=== PATIENT | female | born 1935 | race Caucasian/White ===

== ENCOUNTER 2021-01-23 10:18 | Observation (INO) | payer OTHER ==
[~2021-01-23] VITALS: Ht 142.2 cm; Wt 52.6 kg
[~2021-01-23 10:18] MED LIST: ALLOPURINOL; ATENOLOL; DIOVAN
[2021-01-23 10:44] VITALS: BP 155/48
[2021-01-23 10:49] LABS: HEMATOCRIT 35.7 % (37.0-47.0); HEMOGLOBIN 11.7 gm/dL (12.0-15.0); MCH 30.7 pg (26.0-34.0); MCHC 32.7 g/dL (28.0-37.0); MCV 94.1 fL (80.0-100.0); MPV 9.9 fl. (7.2-11.1); NUCLEATED RBCS 0 /100WBC; PLATELET COUNT* 246 thou/uL (150-400); WBC 8.9 thou/uL (4.0-11.0)
[2021-01-23] MEDS ORDERED: TOPROL XL25 MG PO (10:49)
[2021-01-23] MEDS ORDERED: ALLOPURINOL 10100 M1 PO (10:49)
[2021-01-23] MEDS ORDERED: ASA81BEC PO (10:49)
[2021-01-23] MEDS ORDERED: PLAVIX 75 MG TA75 MG PO (10:50)
[2021-01-23] MEDS ORDERED: TRIAMTERENE/HCT1 CA1 PO (10:50)
[2021-01-23 11:06] LABS: CREATININE 1.7 mg/dL (0.6-1.3); POTASSIUM 5.7 mmol/L (3.5-5.1)
[2021-01-23 11:07] LABS: CALCIUM 9.2 mg/dL (8.5-10.1)
[2021-01-23 11:08] LABS: ALBUMIN 3.6 g/dL (3.4-5.0); TOTAL BILIRUBIN 0.2 mg/dL (<0.1-1.0); TOTAL PROTEIN 7.8 g/dL (6.4-8.2)
[2021-01-23 11:13] LABS: ABSOLUTE BASOPHILS 0.1 thou/uL (0.0-0.2); ABSOLUTE EOSINOPHILS 0.3 thou/uL (0.0-0.7); ABSOLUTE LYMPHOCYTES 1.6 thou/uL (0.8-5.3); ABSOLUTE MONOCYTES 0.4 thou/uL (0.0-1.2); ABSOLUTE NEUTROPHILS 6.5 thou/uL (1.6-8.1); ATYPICAL LYMPHS 1 %; METAMYELOCYTES 2 %; PLATELET ESTIMATE ADEQUATE
[2021-01-23 12:01] LABS: URINE BILIRUBIN NEGATIVE (Negative); URINE BLOOD 3+ (Negative); URINE CLARITY CLEAR; URINE COLOR YELLOW; URINE GLUCOSE-RANDOM NEGATIVE (Negative); URINE KETONES NEGATIVE (Negative); URINE LEUKOCYTES 2+ (Negative); URINE NITRITE NEGATIVE (Negative); URINE PROTEIN TRACE (Negative); URINE UROBILINOGEN 0.2 E.U./dl (0.2-1.0)
[2021-01-23 12:07] LABS: BACTERIA 1-9 Few /HPF (None Seen); SQUAMOUS 0-3 Few /LPF (0-3); URINE WBC 6-15 Few /HPF (0-5)
[2021-01-23 12:08] LABS: CASTS None Seen /LPF (None Seen); CRYSTALS None Seen /LPF (None Seen); MUCUS 0-3 Light strn/LPF (None Seen)
[2021-01-23 13:17] VITALS: BP 154/70
[2021-01-23 14:45] VITALS: BP 132/49
--- NOTE | 2021-01-23 14:57 | EKG ---
[place] [address] ELECTROCARDIOGRAM REPORT Name: [facility]UE Room: [address]R.#: [id number] Admission: 01/23/21 Attend Phys: Guy Parikh Discharge: Date of : 35 Date of Service: 01/23/21 1052 Report #: [id number] THIS REPORT FOR: //name// [facility] ED Test Date: 2021-01-23 Test Time: 10:52:58 Pat Name: SUE AC Department: Room: [facility] Gender: F [employer] Installer: MOLLY : 1935 Requested By: Madi Kowalski Order Number: [id number] MD: Faraz Snider Measurements Intervals [place] Rate: 57 P: 42 NM: 169 QRS: 69 QRSD: 141 T: 11 QT: 484 QTc: 472 Interpretive Statements Sinus rhythm Right bundle branch block No previous ECG available for comparison Electronically Signed On 01-23-2021 14:57:19 CDT by Faraz Snider [email or web address] <ELECTRONICALLY SIGNED> By: Faraz Snider MD, [facility] 01/23/21 1457 1052 1052 Faraz Snider MD, [facility] /EPI
[2021-01-23 16:00] VITALS: BP 125/63
[2021-01-23 20:00] VITALS: BP 130/60
--- NOTE | 2021-01-24 04:10 | NUR ---
DAUGHTER AND VISITOR HERE AT BEGINNING OF SHIFT. DAUGHTER BROUGHT HER IN TANZANIAN FOOD; PT ATE MOST OF IT WHILE SITTING ON SIDE OF THE BED. PT ABLE TO ANSWER QUESTIONS APPROPRIATLEY AND REMEMBERS TO USE CALL LIGHT FOR ASSISTANCE TO WALK TO THE BATHROOM. PT VOIDS YELLOW URINE. PT HAS BLEEDING HEMORROIDS. FLUIDS INFUSING PER DR ORDER. VITALS WNL. FREQUENTLY USED ITEMS AND CALL LIGHT WITHIN REACH. SIDERAILS UPX2 AND BED ALARM ON. WILL CONTINUE TO MONITOR.
[2021-01-24 05:08] LABS: HEMATOCRIT 27.8 % (37.0-47.0); MCH 31.1 pg (26.0-34.0); MCHC 32.8 g/dL (28.0-37.0); MCV 94.7 fL (80.0-100.0); MPV 9.5 fl. (7.2-11.1); RBC 2.94 mil/uL (4.20-5.00); RDW-CV 16.7 % (10.5-14.5); WBC 6.4 thou/uL (4.0-11.0)
[2021-01-24 05:10] LABS: HEMOGLOBIN 9.1 gm/dL (12.0-15.0)
[2021-01-24 05:19] LABS: CALCIUM 8.2 mg/dL (8.5-10.1); CREATININE 1.4 mg/dL (0.6-1.3)
[2021-01-24 05:28] LABS: POTASSIUM 4.3 mmol/L (3.5-5.1)
[2021-01-24 08:00] VITALS: BP 129/50
[2021-01-24 08:14] VITALS: BP 129/50
--- NOTE | 2021-01-24 14:37 | NUR ---
Pt is A&O. Resides at home with friends. Independent, dtr assists with some ADLs and IADLs, family provide transportation. No DME. Family working on securing caregivers for Pt post dc. Anticipate dc tomorrow to home. CM will discuss HH with Pt. Continues IV fluids. Therapies ordered.
[2021-01-24 15:31] VITALS: BP 153/67
--- NOTE | 2021-01-24 19:02 | NUR ---
PATIENT RESTING IN RECLINER, FAMILY AT SIDE VISITING. IV TO LEFT FOREARM WITH NORMAL SALINE INFUSING AT 100ML/HR. C/O OF RIGHT EYE ITCHY, BURNING. WILL GET EYE OINTMENT STARTING TONIGHT. ALERT AND ORIENTED X4. NO COMPLAINTS OF PAIN. ALL QUESTIONS AND CONCERNS ADDRESSED.
[2021-01-24 20:30] VITALS: BP 180/62
[2021-01-25 03:58] LABS: HEMOGLOBIN 9.4 gm/dL (12.0-15.0); MCH 30.8 pg (26.0-34.0); MCHC 32.5 g/dL (28.0-37.0); MCV 94.9 fL (80.0-100.0); MPV 10.1 fl. (7.2-11.1); RBC 3.05 mil/uL (4.20-5.00); RDW-CV 16.8 % (10.5-14.5); WBC 6.3 thou/uL (4.0-11.0)
[2021-01-25 04:05] LABS: CALCIUM 7.6 mg/dL (8.5-10.1); CREATININE 1.1 mg/dL (0.6-1.3); POTASSIUM 4.1 mmol/L (3.5-5.1)
--- NOTE | 2021-01-25 06:42 | NUR ---
Oriented x 2-3 but is forgetful. 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 She seems like she's hard of hearing. She denies any discomfort. She is up in the room with stand by assist to the bathroom. New IV started in rt hand,20 gauge. She has slept well this shift.
[2021-01-25 08:00] VITALS: BP 134/63
[2021-01-25] MEDS ORDERED: ERYTHROMYCIN E3.5 G3 OPHTHALMIC (08:24)
[2021-01-25] MEDS ORDERED: CEFDINIR300 MG PO (08:24)
[2021-01-25 14:09] VITALS: BP 134/63
--- NOTE | 2021-01-25 15:24 | NUR ---
PT DISCHARGED HOME ACCOMPANIED BY HER SON IN LAW. PT HAS GOOD UNDERSTAnding of discharge instructions. PT SALINE LOCK WAS REMOVED WITH HUB INTACT. PT DISCHARGED HOME WITH ALL BELONGINGS. SON IN LAW WAS EDUCATED ABOUT NEW MEDICATIONS PT WILL BE ON.
== END 2021-01-25 15:15 | disposition home or self-care (01) ==
LOC: M.ERS 10:18 → M.TBA-ER 12:18 → M.ORTHSURG 12:18
PROVIDERS: Emergency Medicine; Family Medicine; ADMIT Internal Medicine; ATTEND Internal Medicine
DX: N39.0 Urinary tract infection, site not specified (principal); Z20.822 Contact with and (suspected) exposure to COVID-19; G93.41 Metabolic encephalopathy; N17.9 Acute kidney failure, unspecified; E87.5 Hyperkalemia; R31.9 Hematuria, unspecified; I10 Essential (primary) hypertension; E03.9 Hypothyroidism, unspecified; M10.9 Gout, unspecified; M19.90 Unspecified osteoarthritis, unspecified site; Z79.82 Long term (current) use of aspirin; Z79.899 Other long term (current) drug therapy